=== PATIENT | female | born 2005 | race Caucasian/White ===

== ENCOUNTER 2025-04-05 06:32 | Outpatient (REF) | payer OTHER, SELFPAY ==
--- NOTE | ~2025-04-05 | US_ITS ---
EXAMINATION: US PELVIS CLINICAL INFORMATION: Painful menses. COMPARISON: None available. TECHNIQUE: Ultrasound of the pelvis is performed using both transabdominal and transvaginal transducers along with Doppler. Transvaginal imaging is performed due to inadequate visualization transabdominally. FINDINGS: Uterus: The uterus is anteverted, anteflexed, and measures 7.3 x 2.9 x 3.1 cm. The cervix has a normal appearance. The double wall endometrial thickness is 3 mm. The uterus is smooth in contour and has normal myometrial echogenicity. No visible fibroid. Adnexa: Both ovaries are visualized. There is normal color flow to the adnexa. There is no ovarian torsion. There is no pelvic ascites or fluid collection. There are no adnexal masses. Right ovary measures 3.5 x 2.1 x 2.2 cm. Normal sonographic appearance. Left ovary measures 3.3 x 2.4 x 2.7 cm. Normal sonographic appearance. US/US pelvic and transvaginal IMPRESSION: Normal pelvic ultrasound. Electronically signed by: Kunal Hogan MD 04/05/2025 04:23 PM EDT
--- OUTSIDE RECORDS SUMMARY | 2025-04-05 06:36 | XMS_ITS | Encounter Summary ---
Author Organization [facility] Address [address] [place] [phone] Phone Care Team Providers Care Automotive Sales Representative Name Role Phone Mahsa Farah MD Primary Care Provider + Reason for Referral * Consultation (Within 2 weeks) - New Request Specialty Diagnoses / Procedures Referred By Contrambo t Referred To Contact Obstetrics and Gynecology Mahsa Farah MD [address] [place] [address] Phone: tel: fax: [email or web address] [facility] [address] [place] [address] Phone: tel: Referral ID Status Reason Start Date Expiration Date V isits Requested Visits Authorized [id number] New Request 03/31/2025 03/31/2026 1 1 Encounter Details Date Type Department Care Team (Late st Contact Info) Description 03/31/2025 Transcribe Orders [facility] [address] [place] [address] Mahsa Farah MD [address] [place] [phone] [email or web address] Social History Tobacco Use Types Packs/Day Years Used Date Smoking Tobacco: Never Assessed Education Answer Date Recorded Are you interested in more education? Not on kamryn e 03/31/2025 Are you concerned about learning? Not on file 03/31/2025 No 03/31/2025 No 03/31/2025 Digital Access Answer Date Recorded No 03/31/2025 No 03/31/2025 Reliable internet access at home? Not on file 03/31/2025 Device with a working camera? Not on file Comments Unknown Sex and Gender Information Value Date Recorded Sex Assigned at Not on file Legal Sex Female 4:32 PM EDT Gender Identity Not on file Sexual Orientation Not on file documented as of this encounter Plan of Treatment Upcoming Encounters Date Type Department Care Team (Late st Contact Info) Description 04/06/2025 11:50 AM EDT Office Visit [facility] [address] [place] [address] [place] [address] Aminata Rodriguez MD [address] [place] [address], [address] [place] [address] [email or web address] Scheduled Referrals Name Type Priority Associated Diagnoses Order Schedule Ambulatory referral to [facility] Gynecology Outpatient Referral Routine Ordered: 03/31/2025 documented as of this encounter Visit Diagnoses Not on filedocumented in this encounter Care Teams Automotive Sales Representative Relationship Specialty Start Date End Date Mahsa Farah MD [address] [place] [address] [place] [address] PCP - General Family Medicine 03/31/25 documented as of this encounter Additional Source Comments The information contained in this document represents components of the legal health record. It is not the complete legal health record.[facility]
--- OUTSIDE RECORDS SUMMARY | 2025-04-05 06:36 | XMS_ITS | Clinical Summary ---
Author Organization [facility] Address [address] [place] [address] [place] [phone] Phone Care Team Providers Care Mortar Carrier Name Role Phone Mahsa Farah MD Primary Care Provider + Encounters Date Type Department Care Team Description 03/31/2025 Transcribe Orders [facility] [address] [place] [address] [place] [address] Mahsa Farah MD from Last 3 Months Social History Tobacco Use Types Packs/Day Years [...] on file Sexual Orientation Not on file Plan of Treatment Upcoming Encounters Date Type Department Care Team (Late st Contact Info) Description 04/06/2025 11:50 AM EDT Office Visit [facility] [address] [place] [address] [place] [address] Aminata Rodriguez MD [address] [facility], [address] [place] [address] [email or web address] Health Maintenance Due Date Last Done Comments MMR VACCINES (1 of 1 - Stand cosmo series) 2006 BMI ASSESSMENT 2008 DEVELOPMENTAL/BEHAVIORAL SCR EENING (PHQ, PSC, or SWYC) 2008 COMBINED DTaP,Tdap,Td (1 - Tdap) 2012 DEPRESSION SCREENING 2017 SMOKING Hx and SMOKELESS TOB ACCO SCREENING 2018 VARICELLA VACCINES (1 of 2 - 13+ 2-dose series) 2018 HPV VACCINES (1 - 3-dose series) 2020 CHLAMYDIA SCREENING 2021 MENINGOCOCCAL VACCINES (B) ( 1 of 2 - Standard) 2021 ADOLESCENT UNIVERSAL LIPID SCREENING 2022 HEPATITIS C SCREENING 12/02/2023 HIV ONE-TIME SCREENING (18-6 5 YEARS) 12/02/2023 HEPATITIS B VACCINES (1 of 3 - 19+ 3-dose series) 2024 INFLUENZA VACCINE (#1) 2025 COVID-19 VACCINE (1 - 2024-2 6 season) 2025 HEPATITIS A VACCINES Aged Out No long er eligible based on patient's age to complete this topic HIB VACCINES Aged Out No longer eligi ble based on patient's age to complete this topic MENINGOCOCCAL VACCINES (ACWY) Aged Out No longer eligible based on patient's age to complete this topic PNEUMOCOCCAL VACCINES (0-49 years) Aged Out No longer eligible based on patient's age to complete this topic Medical Devices Not on file Insurance JAGDEEP HANSON [employer] [facility] Care Teams Mortar Carrier Relationship Specialty Start Date End Date Mahsa Farah MD [address] [place] [phone] PCP - General Family Medicine 03/31/25 Additional Source Comments The information contained in this document represents components of the legal health record. It is not the complete legal health record.[facility]
== END 2025-04-05 06:33 | disposition home or self-care (01) ==
LOC: HO.UMASIMG 06:32
PROVIDERS: Visit Provider Family Medicine
DX: N94.4 Primary dysmenorrhea (principal); R53.83 Other fatigue
CPT/HCPCS: 76830; 76856

== ENCOUNTER → 2025-04-05 14:11 | Outpatient (BNV) | payer OTHER, SELFPAY | PROVIDERS: Visit Provider Radiology Diagnostic Radiology | DX: N94.6 Dysmenorrhea, unspecified (principal) | CPT/HCPCS: 76830; 76856 ==